=== PATIENT | male | born 1975 | race Caucasian/White ===

== ENCOUNTER 2016-12-08 13:36 | Emergency (ER) | payer OTHER ==
[~2016-12-08] VITALS: Ht 170.2 cm; Wt 104.5 kg
[2016-12-08 13:38] VITALS: BP 125/76; PULSE 78; RESP 16; TEMP 98.6; O2SAT 98
--- NOTE | 2016-12-08 13:58 | PD ---
HPI Chief Complaint: Injury Time Seen by Provider: 13:58 Travel History International Travel<30 days: No Contact w/Intl Traveler<30days: No Traveled to known affect area: No History of Present Illness HPI 41-year-old male presents emergency Department with complaint of left knee pain for the last 4-5 days. He has been doing a lot of housework and construction and was kneeling on his knee with the exacerbation of pain. He denies twisting , strain. He called the [place] where he sees primary care and they told him to come to the ER for an x-ray. He denies paresthesias, loss of sensation, decreased range of motion, decreased strength to the affected extremity. Has been ambulatory on the affected extremity. Pain is to the medial and posterior aspect of the knee. He says it has been swelling but the swelling has subsided somewhat today. Denies fever, chills, nausea, vomiting. Has taken ibuprofen with good relief of pain and swelling. He is also been using a knee brace for compression and support. Pain is worse with kneeling down and trying to stand back up with. Pain is constant. No known allergies. Denies significant past medical history. No other modifying factors or associated signs and symptoms. [facility] Social History Tobacco Use: No Allergies-Medications (Allergen,Severity, Reaction): Coded Allergies: No Known Allergies (Unverified , 12/08/16) Reported Meds & Prescriptions Reported Meds & Active Scripts Active No Active Prescriptions or Reported Medications Review of Systems Except as stated in HPI: all other systems reviewed are Neg Physical Exam Narrative GENERAL: Well-nourished, well-developed male patient, in no acute distress SKIN: Warm and dry. HEAD: Atraumatic. Normocephalic. EYES: Pupils equal and round. No scleral icterus. No injection or drainage. ENT: Mucosa pink and moist. Airway patent. NECK: Trachea midline. CARDIOVASCULAR: Regular rate. RESPIRATORY: No accessory muscle use. GASTROINTESTINAL: Rounded. MUSCULOSKELETAL: Left knee is mildly edematous and with tenderness on palpation to the medial and posterior aspect; without erythema, ecchymosis; no obvious deformity; with full range of motion and flexion to 90; joint stable with negative drawer test . Left lower extremity is supple and nontender 2+ pedal pulse and sensory intact and without erythema or edema. No edema. No obvious deformities. NEUROLOGICAL: Awake and alert. Oriented 3. No obvious cranial nerve deficits. Motor grossly within normal limits. Normal speech. PSYCHIATRIC: Appropriate mood and affect; insight and judgment normal. Data Data Last Documented VS Vital Signs Date Time Temp Pulse Resp B/P Pulse Ox O2 Delivery O2 Flow Rate FiO2 12/08/16 13:38 98.6 78 16 125/76 98 Room Air Orders Knee, Complete (4vws) (12/08/16 13:54) MDM Medical Decision Making Medical Screen Exam Complete: Yes Emergency Medical Condition: Yes Medical Record Reviewed: Yes Differential Diagnosis Bursitis, arthritis, less likely fracture dislocation Narrative Course 41-year-old male with left knee pain. Denies injury. [facility] and he was told to come to the emergency room. I do not suspect fracture or dislocation but will do the x-ray upon patient request. I offered the patient a nonnarcotic for pain and he declined at this time. Left knee x-ray ordered. 1435: Eft knee x-ray with no acute findings. Patient provided a copy of the report [facility] to [facility]. Instructed patient to follow up outpatient if symptoms persist greater than 7-10 days. Patient says he has prescription from the [place] for ibuprofen at home. Patient does not feel like he needs crutches and declined at this time. He has a knee brace at home for support. Patient verbalizes understanding and agreement with treatment plan. Patient is medically cleared and stable for discharge. Discussed reasons to return to the emergency department. Instructed patient to follow up with primary care provider. Patient agrees with treatment plan. The patients vital signs are stable and the patient is stable for outpatient follow-up and treatment. Patient discharged home, stable and in no acute distress. Diagnosis Primary Impression: Left knee pain Qualified Code: M25.562 - Left knee pain, unspecified chronicity Referrals: Primary Care Physician Patient Instructions: General Instructions, Knee Pain (ED) Additional Instructions: Tylenol or ibuprofen as needed and as directed to reduce pain and inflammation Rest, ice, compress, and elevate extremity to decrease pain and inflammation Knee Brace for support Crutches for support Avoid aggravating activity; increase activity as tolerated Follow-up with primary care provider Return to the emergency department immediately with worsening symptoms Med/Other Pt SpecificInfo: No Meds Exist/No RX given Scripts No Active Prescriptions or Reported Meds Disposition: 01 DISCHARGE HOME Condition: Stable Hyacinth Enrique Dec 08, 2016 13:58
--- NOTE | 2016-12-08 14:30 | RADRPT ---
EXAM DATE/TIME: 12/08/2016 14:23 [place] COMPARISON: No previous studies available for comparison. INDICATIONS : Left knee pain. MEDICAL HISTORY : hx of left knee problems from the SURGICAL HISTORY : None. ENCOUNTER: Initial ACUITY: 2 days PAIN SCORE: 6/10 LOCATION: Left knee FINDINGS: Four view examination of the left knee demonstrates no evidence of fracture or dislocation. Bony min eralization is normal. The articular surfaces are intact. The suprapatellar soft tissues have a nor mal configuration. CONCLUSION: Negative for an acute process.. Geronimo Watson MD FACR on December 08, 2016 at 14:28 Board Certified Radiologist. This report was verified electronically.
== END 2016-12-08 14:37 | disposition home or self-care (01) ==
LOC: NEPK 13:36
DX: M25.562 Pain in left knee (principal)
CPT/HCPCS: 73564; 99283